=== PATIENT | female | born 1945 | race Caucasian/White ===

== ENCOUNTER 2016-12-16 09:53 | Day surgery (SDC) | payer OTHER ==
[~2016-12-16] VITALS: Ht 166.4 cm; Wt 84.4 kg
[~2016-12-16 09:53] MED LIST: ATROVENT 00.5 MG/2.5 IH; COGENTIN0.5 MG PO; COMBIVENT200 INHALA; ENALAPRIL MALEA10 MG PO; ENDOCET 5-3251 EACH PO; ESTRACE1 MG PO; FENOFIBRATE160 M1 PO; GEODON80 MG PO; GLIPIZIDE5 MG PO; GLUCOTROL10 MG PO; HYDROCODON-ACE1 EAC7 PO; JANUVIA100 MG PO; K-DUR10 MEQ PO; KLOR-CON20 MEQ PO; LASIX40 MG PO; LEVEMIR FL100 UNIT/1 SC; LEVEMIR FL100 UNITS/ SC; LEXAPRO10 MG PO; LEXAPRO20 MG PO; LOFIBRA,TRIGLI160 MG PO; METFORMIN HCL1000 MG PO; MORPHINE SULFAT15 M1 PO; NABUMETONE750 MG PO; NEURONTIN300 MG PO; PERCOCET 5/31 TABLET PO; POTASSIUM CHLO20 ME2 PO; PREDNISONE10 MG PO; PREDNISONE20 MG PO; PROBIOTIC1 EAC1 PO; RANITIDINE HCL300 M1 PO; RANITIDINE HCL300 MG PO; SEROQUEL100 MG PO; SIMVASTATIN10 MG PO; TIZANIDINE HCL4 MG PO; VASOTEC10 MG PO; ZOCOR10 MG PO
[2016-12-16 10:54] LABS: POINT-OF-CARE METER ID UU14174212
== END 2016-12-16 11:45 | disposition home or self-care (01) ==
LOC: PAIN 09:53 → SDC 10:15 → PAIN 10:15
PROVIDERS: Anesthesiology Pain Medicine
DX: M54.16 Radiculopathy, lumbar region (principal); M51.26 Other intervertebral disc displacement, lumbar region; J45.909 Unspecified asthma, uncomplicated; I10 Essential (primary) hypertension; E11.9 Type 2 diabetes mellitus without complications; M19.90 Unspecified osteoarthritis, unspecified site; Z79.51 Long term (current) use of inhaled steroids
CPT/HCPCS: 82948; J1100

== ENCOUNTER 2017-02-12 14:20 | Inpatient (IN) | payer OTHER ==
[~2017-02-12] VITALS: Ht 157.5 cm; Wt 88.3 kg
[2017-02-12 14:49] LABS: HEMATOCRIT 43.1 % (36.0-46.0); MCH 26.5 PG (29.0-34.0); MCHC 30.6 G/DL (30.0-36.0); MCV 86.4 FL (83-99); MEAN PLAT.VOLUME 10.9 uM^3 (9.5-12.4); PLATELET COUNT 250 K/uL (156-360); RBC DIS.WIDTH-CV 13.1 % (11.8-14.6); RBC DIS.WIDTH-SD 40.8 % (39-53); RED BLOOD COUNT 4.99 M/uL (3.80-5.20); WHITE BLOOD COUNT 15.5 K/uL (4.1-10.2)
[2017-02-12 15:00] LABS: CHLORIDE 99 mEq/L (99-109); SODIUM 140 mEq/L (136-147)
[2017-02-12 15:02] LABS: GLUCOSE 167 mg/dL (70-99)
[2017-02-12 15:03] LABS: ANION GAP 15 MEQ/L (2-14)
[2017-02-12 15:06] LABS: GFR ESTIMATE (CALCULATED) > 59 mL/min/
[2017-02-12 15:07] LABS: UREA NITROGEN (BUN) 29 mg/dL (9-23)
[2017-02-12 15:11] LABS: TROP-I INTERPRETATION NEGATIVE; TROPONIN-I < 0.01 ng/mL (0.0-0.30)
[2017-02-12] MEDS ORDERED: MORPHINE SULFAT30 M2 PO (16:12)
[2017-02-12] MEDS ORDERED: PREDNISONE10 MG PO (16:12)
[2017-02-12] MEDS ORDERED: K-DUR20 MEQ PO (16:12)
[2017-02-12] MEDS ORDERED: METFORMIN HCL1000 MG PO (16:13)
[2017-02-12] MEDS ORDERED: JANUVIA100 MG PO (16:13)
[2017-02-12] MEDS ORDERED: COMBIVENT RESPIM4 GM IH (16:14)
[2017-02-12] MEDS ORDERED: PRED FORTE100 DROP/5 LEFT EYE (16:14)
[2017-02-12] MEDS ORDERED: GLIPIZIDE XL10 MG PO (16:14)
[2017-02-12] MEDS ORDERED: MONTELUKAST SOD10 MG PO (16:14)
[2017-02-12] MEDS ORDERED: FLONASE16 G1 BOTH NARES (16:14)
[2017-02-12] MEDS ORDERED: FENOFIBRATE160 M1 PO (16:15)
[2017-02-12] MEDS ORDERED: VOLTAREN50 MG PO (16:15)
[2017-02-12 19:58] LABS: ADD MIUA? YES; BILIRUBIN NEGATIVE; BLOOD NEGATIVE; COLOR STRAW ((YELLOW)); GLUCOSE (STRIP) >=500; KETONES NEGATIVE; LEUKOCYTES TRACE; NITRITE NEGATIVE; PROTEIN (STRIP) NEGATIVE; SPECIFIC GRAVITY 1.007 (1.000-1.030); UROBILINOGEN 0.2 MG/DL (0.2-1.0)
[2017-02-12 20:15] LABS: BACTERIA RARE /HPF; EPITHELIAL CELLS RARE /HPF; MUCUS NONE SEEN /LPF; RED BLOOD CELLS 0-5 /HPF (0-5); UCUL ADDED? NO; WHITE BLOOD CELLS 0-5 /HPF (0-5)
[2017-02-12 20:21] VITALS: BP 145/64
[2017-02-12 21:51] LABS: Estimated Average Glucose 186 mg/dL (70-123); HEMOGLOBIN A1c (GLYCOHEMOGLOB) 8.1 % HGB (Below 5.7)
[2017-02-12 22:11] LABS: AMPHETAMINES QUANT VALUE 0 NG/ML; BARBITUATES QUANT VALUE 0 NG/ML; BENZODIAZEPINES QUANT VALUE 0 NG/ML; BENZODIAZEPINES, URINE SCREEN Negative (200 ng/mL); MARIJUANA QUANT VALUE 0 NG/ML; PHENCYCLIDINE QUANT VALUE 0 NG/ML
[2017-02-12 22:11] LABS: HDL CHOLESTEROL 53 MG/DL (Desirable>=50); LDL CHOLESTEROL 60 mg/dL (Desirable<100); NON-HDL CHOLESTEROL 101 mg/dL (Desirable<160); TOTAL CHOLESTEROL 154 mg/dL (Desirable<200); TRIGLYCERIDES 203 MG/DL (Normal: <150)
[2017-02-13 02:28] LABS: BASE EXCESS 3.1 mEq/L (-3 to +3); BICARBONATE 28.5 mEq/L (22-26); CARBOXY HGB 1.2 % (0-5); METHEMOGLOBIN 1.1 % (0-1.5); PCO2 46 mm Hg (35-45); PO2 84 mm Hg (80-100)
[2017-02-13 02:29] LABS: COMMENTS - BLOOD GASES C+A+; DEVICE NC; O2 FLOW 3 L/MIN; SITE LR; TOTAL RESP RATE 21 resp/min
[2017-02-13 02:38] VITALS: BP 144/62
[2017-02-13 05:00] VITALS: BP 134/60
[2017-02-13 05:12] LABS: HEMATOCRIT 34.9 % (36.0-46.0); MCH 26.7 PG (29.0-34.0); MCHC 31.8 G/DL (30.0-36.0); MCV 83.9 FL (83-99); MEAN PLAT.VOLUME 11.1 uM^3 (9.5-12.4); PLATELET COUNT 186 K/uL (156-360); RBC DIS.WIDTH-CV 13.1 % (11.8-14.6); RBC DIS.WIDTH-SD 40.2 % (39-53); RED BLOOD COUNT 4.16 M/uL (3.80-5.20)
[2017-02-13 05:13] LABS: WHITE BLOOD COUNT 9.1 K/uL (4.1-10.2)
[2017-02-13 07:18] VITALS: BP 155/72
[2017-02-13 07:54] LABS: POINT-OF-CARE METER ID UU13113831
[2017-02-13 08:18] LABS: POINT-OF-CARE METER ID UU13113831
[2017-02-13 11:58] VITALS: BP 164/77
[2017-02-13 15:06] VITALS: BP 142/64
[2017-02-13 20:00] VITALS: BP 144/66
[2017-02-14] VITALS: BP 132/77
[2017-02-14 04:00] VITALS: BP 158/80
[2017-02-14 12:10] LABS: POINT-OF-CARE METER ID UU14174225
[2017-02-14 16:06] VITALS: BP 147/80
[2017-02-14 16:40] LABS: POINT-OF-CARE METER ID UU14174225
[2017-02-14 20:00] VITALS: BP 164/67
[2017-02-14 23:44] VITALS: BP 158/82
[2017-02-15 04:00] VITALS: BP 140/77
[2017-02-15 07:59] VITALS: BP 140/64
[2017-02-15 08:25] LABS: POINT-OF-CARE METER ID UU14174225
[2017-02-15 12:00] VITALS: BP 132/65
[2017-02-15 12:14] LABS: POINT-OF-CARE METER ID UU14174225
[2017-02-15 15:46] VITALS: BP 131/64
[2017-02-15 16:57] LABS: POINT-OF-CARE METER ID UU14174225
[2017-02-15 19:29] VITALS: BP 137/68
[2017-02-16 00:10] VITALS: BP 135/62
[2017-02-16 04:29] VITALS: BP 128/71
[2017-02-16 08:31] VITALS: BP 121/69
[2017-02-16] MEDS ORDERED: LEVOFLOXACIN750 MG PO (11:51)
[2017-02-16] MEDS ORDERED: PREDNISONE10 MG PO (11:58)
[2017-02-16 14:49] VITALS: BP 128/70
== END 2017-02-16 14:46 | disposition home health service (06) | DRG 191 ==
LOC: EME 14:20 → EDOF 16:09 → 5WEST 20:08 → 5SOUTH 02-13 02:15 → 5WEST 02-13 02:15 → 5SOUTH 02-13 11:52
PROVIDERS: Family Medicine; Hospitalist; Nurse Practitioner Family; Physician Assistant Medical
DX: J44.1 Chronic obstructive pulmonary disease with (acute) exacerbation (principal); R65.10 Systemic inflammatory response syndrome (SIRS) of non-infectious origin without acute organ dysfunction; E11.65 Type 2 diabetes mellitus with hyperglycemia; G24.01 Drug induced subacute dyskinesia; Z99.81 Dependence on supplemental oxygen; Z79.4 Long term (current) use of insulin; Z79.84 Long term (current) use of oral hypoglycemic drugs; E66.9 Obesity, unspecified; Z68.35 Body mass index [BMI] 35.0-35.9, adult; G89.29 Other chronic pain; E78.5 Hyperlipidemia, unspecified; I10 Essential (primary) hypertension; Z87.891 Personal history of nicotine dependence; R09.02 Hypoxemia; E78.1 Pure hyperglyceridemia
CPT/HCPCS: 36600; 70450; 70551; 71020; 71250; 80048; 80061; 80306 90; 81003; 82803; 82948; 83036; 83605; 84484; 85027; 87040; 87070; 87205; 92610 GN; 93005; 93306; 93880; 94640; 94640 76; 94760; 94799; 99202; 99281; 99285; G0378; J0515; J1650; J1815; J1956; J2060; J2930; J7120

== ENCOUNTER 2017-03-12 10:25 | Day surgery (SDC) | payer OTHER ==
[~2017-03-12] VITALS: Ht 165.1 cm; Wt 85.7 kg
[~2017-03-12 10:25] MED LIST changes: +COMBIVENT RESPIM4 GM IH; +FLONASE16 G1 BOTH NARES; +GLIPIZIDE XL10 MG PO; +K-DUR20 MEQ PO; +LEVOFLOXACIN750 MG PO; +MONTELUKAST SOD10 MG PO; +MORPHINE SULFAT30 M2 PO; +MULTIVITAMIN1 EAC2 PO; +NOVOLIN,HU100 UNITS1 SC; +PRED FORTE100 DROP/5 LEFT EYE; +VOLTAREN50 MG PO
[2017-03-12 10:54] LABS: POINT-OF-CARE METER ID UU14174212
== END 2017-03-12 11:34 | disposition home or self-care (01) ==
LOC: PAIN 10:25 → SDC 11:00 → PAIN 11:00
PROVIDERS: Anesthesiology Pain Medicine
PROC: 0SJ Lower Joints, Inspection (ICD-10-PCS; principal; 2017-03-12)
DX: M54.16 Radiculopathy, lumbar region (principal); G89.29 Other chronic pain; Z53.09 Procedure and treatment not carried out because of other contraindication; J44.9 Chronic obstructive pulmonary disease, unspecified
CPT/HCPCS: 82948

== ENCOUNTER 2017-05-14 11:09 | Day surgery (SDC) | payer OTHER ==
[~2017-05-14] VITALS: Ht 165.1 cm; Wt 85.7 kg
[2017-05-14 11:45] LABS: POINT-OF-CARE METER ID UU14174212
== END 2017-05-14 12:55 | disposition home or self-care (01) ==
LOC: PAIN 11:09 → SDC 11:45 → PAIN 11:45
PROVIDERS: Anesthesiology Pain Medicine
DX: M47.26 Other spondylosis with radiculopathy, lumbar region (principal); M51.16 Intervertebral disc disorders with radiculopathy, lumbar region; G89.29 Other chronic pain; M43.16 Spondylolisthesis, lumbar region; M54.12 Radiculopathy, cervical region; M54.5 Low back pain; I10 Essential (primary) hypertension; E78.5 Hyperlipidemia, unspecified; K21.9 Gastro-esophageal reflux disease without esophagitis; J44.9 Chronic obstructive pulmonary disease, unspecified; E11.9 Type 2 diabetes mellitus without complications; F20.9 Schizophrenia, unspecified; F32.9 Major depressive disorder, single episode, unspecified; G47.33 Obstructive sleep apnea (adult) (pediatric); Z80.1 Family history of malignant neoplasm of trachea, bronchus and lung; Z79.4 Long term (current) use of insulin; Z79.84 Long term (current) use of oral hypoglycemic drugs; Z79.899 Other long term (current) drug therapy; Z87.891 Personal history of nicotine dependence; Z79.891 Long term (current) use of opiate analgesic
CPT/HCPCS: 82948; J1030; J3010; S0020

== ENCOUNTER 2017-05-21 10:54 | Day surgery (SDC) | payer OTHER ==
[~2017-05-21] VITALS: Ht 165.1 cm; Wt 85.7 kg
[2017-05-21 11:37] LABS: POINT-OF-CARE METER ID UU14174212
== END 2017-05-21 13:19 | disposition home or self-care (01) ==
LOC: PAIN 10:54 → SDC 11:45 → PAIN 13:19
PROVIDERS: Anesthesiology Pain Medicine
DX: M47.26 Other spondylosis with radiculopathy, lumbar region (principal); M51.16 Intervertebral disc disorders with radiculopathy, lumbar region; M54.5 Low back pain; M54.12 Radiculopathy, cervical region; G89.29 Other chronic pain; I10 Essential (primary) hypertension; E11.9 Type 2 diabetes mellitus without complications; E03.9 Hypothyroidism, unspecified; K21.9 Gastro-esophageal reflux disease without esophagitis; J44.9 Chronic obstructive pulmonary disease, unspecified; Z87.891 Personal history of nicotine dependence; Z85.42 Personal history of malignant neoplasm of other parts of uterus; Z79.84 Long term (current) use of oral hypoglycemic drugs; Z79.891 Long term (current) use of opiate analgesic
CPT/HCPCS: 82948; J1030; J3010; S0020

== ENCOUNTER 2017-07-12 22:49 | Emergency (ER) | payer OTHER ==
[~2017-07-12] VITALS: Ht 165.1 cm; Wt 85.9 kg
[2017-07-13 00:12] LABS: HEMATOCRIT 42.8 % (36.0-46.0); MCHC 30.8 G/DL (30.0-36.0); MCV 87.5 FL (83-99); MEAN PLAT.VOLUME 10.9 uM^3 (9.5-12.4); PLATELET COUNT 230 K/uL (156-360); RBC DIS.WIDTH-CV 13.9 % (11.8-14.6); RBC DIS.WIDTH-SD 44.5 % (39-53); RED BLOOD COUNT 4.89 M/uL (3.80-5.20); WHITE BLOOD COUNT 13.6 K/uL (4.1-10.2)
[2017-07-13 00:23] LABS: CHLORIDE 102 mEq/L (99-109); POTASSIUM 4.2 mEq/L (3.7-5.4); SODIUM 144 mEq/L (136-147)
[2017-07-13 00:25] LABS: GLUCOSE 145 mg/dL (70-99)
[2017-07-13 00:26] LABS: ANION GAP 9 MEQ/L (2-14)
[2017-07-13 00:29] LABS: GFR ESTIMATE (CALCULATED) > 59 mL/min/
[2017-07-13 00:30] LABS: UREA NITROGEN (BUN) 25 mg/dL (9-23)
[2017-07-13 00:33] LABS: TROP-I INTERPRETATION NEGATIVE; TROPONIN-I < 0.01 ng/mL (0.0-0.30)
[2017-07-13 03:32] LABS: TROP-I INTERPRETATION NEGATIVE; TROPONIN-I < 0.01 ng/mL (0.0-0.30)
[2017-07-13] MEDS ORDERED: LEVAQUIN500 MG PO (03:47)
[2017-07-13 04:24] VITALS: BP 140/58
== END 2017-07-13 04:26 | disposition home or self-care (01) ==
LOC: EME 22:49
PROVIDERS: Emergency Medicine
DX: J44.1 Chronic obstructive pulmonary disease with (acute) exacerbation (principal); K21.9 Gastro-esophageal reflux disease without esophagitis; I25.2 Old myocardial infarction; M81.0 Age-related osteoporosis without current pathological fracture; Z87.891 Personal history of nicotine dependence
CPT/HCPCS: 71020; 80048; 84484; 85027; 93005; 94640; 94799; 99281; 99284; J1100; J1200

== ENCOUNTER 2017-08-20 14:08 | Day surgery (SDC) | payer OTHER ==
[~2017-08-20 14:08] MED LIST changes: -ENALAPRIL MALEA10 MG PO; +LEVAQUIN500 MG PO; +PRED FORTE100 DROP/5 BOTH EYES; -PRED FORTE100 DROP/5 LEFT EYE
[2017-08-20] MEDS ORDERED: LEVEMIR FL100 UNIT/1 SC (22:08)
[2017-08-20] MEDS ORDERED: MUCINEX1200 MG PO (22:09)
== END 2017-08-20 15:15 | disposition other institution (70) ==
LOC: EDBD 14:08 → PAIN 14:08 → SDC 14:30 → PAIN 14:30
DX: Z53.8 Procedure and treatment not carried out for other reasons (principal)

== ENCOUNTER 2017-08-20 15:22 | Inpatient (IN) | payer OTHER ==
[~2017-08-20] VITALS: Ht 165.1 cm; Wt 86.3 kg
[2017-08-20 18:26] LABS: MCHC 31.2 G/DL (30.0-36.0); MCV 86.6 FL (83-99); MEAN PLAT.VOLUME 11.3 uM^3 (9.5-12.4); PLATELET COUNT 180 K/uL (156-360); RBC DIS.WIDTH-CV 14.1 % (11.8-14.6); RED BLOOD COUNT 3.81 M/uL (3.80-5.20); WHITE BLOOD COUNT 14.2 K/uL (4.1-10.2)
[2017-08-20 18:33] LABS: CHLORIDE 103 mEq/L (99-109); POTASSIUM 4.1 mEq/L (3.7-5.4); SODIUM 141 mEq/L (136-147)
[2017-08-20 18:34] LABS: GLUCOSE 111 mg/dL (70-99)
[2017-08-20 18:36] LABS: ANION GAP 13 MEQ/L (2-14)
[2017-08-20 18:38] LABS: GFR ESTIMATE (CALCULATED) > 59 mL/min/
[2017-08-20 18:39] LABS: UREA NITROGEN (BUN) 18 mg/dL (9-23)
[2017-08-20 18:45] LABS: TROP-I INTERPRETATION NEGATIVE; TROPONIN-I < 0.01 ng/mL (0.0-0.30)
[2017-08-20] MEDS ORDERED: LEVEMIR FL100 UNIT/1 SC (22:08)
[2017-08-20] MEDS ORDERED: MUCINEX1200 MG PO (22:09)
[2017-08-21 01:58] VITALS: BP 146/69
[2017-08-21 02:59] LABS: POINT-OF-CARE METER ID UU13113717
[2017-08-21 06:45] LABS: POINT-OF-CARE METER ID UU13113717
[2017-08-21 06:49] LABS: ALKALINE PHOSPHATASE 41 IU/L (3-129); ANION GAP 9 MEQ/L (2-14); CHLORIDE 104 MEQ/L (99-109); GFR ESTIMATE (CALCULATED) > 59 mL/min/; GLUCOSE 98 mg/dL (70-99); HEMATOCRIT 33.4 % (36.0-46.0); MCH 26.6 PG (29.0-34.0); MCHC 30.5 G/DL (30.0-36.0); MCV 87.2 FL (83-99); MEAN PLAT.VOLUME 11.1 uM^3 (9.5-12.4); PLATELET COUNT 169 K/uL (156-360); POTASSIUM 3.8 MEQ/L (3.7-5.4); RBC DIS.WIDTH-CV 13.9 % (11.8-14.6); RBC DIS.WIDTH-SD 44.2 % (39-53); RED BLOOD COUNT 3.83 M/uL (3.80-5.20); SAMPLE HEMOLYSIS CHECK 0; SAMPLE ICTERIC CHECK 0; SAMPLE LIPEMIA CHECK 0; SODIUM 143 MEQ/L (136-147); TOTAL BILIRUBIN 0.3 MG/DL (0.0-1.0); UREA NITROGEN (BUN) 14 mg/dL (9-23); WHITE BLOOD COUNT 12.6 K/uL (4.1-10.2)
[2017-08-21 07:37] LABS: POINT-OF-CARE METER ID UU14188625
[2017-08-21 07:41] VITALS: BP 181/74
[2017-08-21 09:54] LABS: POINT-OF-CARE METER ID UU13113717; POINT-OF-CARE USER ID STWAMT
[2017-08-21 11:16] VITALS: BP 138/96
[2017-08-21 16:04] VITALS: BP 134/88
[2017-08-21 17:25] LABS: POINT-OF-CARE METER ID UU13113717
[2017-08-21 19:41] VITALS: BP 160/72
[2017-08-21 21:39] LABS: POINT-OF-CARE METER ID UU14188625; POINT-OF-CARE USER ID BHSKTD
[2017-08-21 23:38] VITALS: BP 134/79
[2017-08-22 04:04] VITALS: BP 124/71
[2017-08-22 07:56] LABS: POINT-OF-CARE METER ID UU14188625
[2017-08-22 08:00] VITALS: BP 144/60
[2017-08-22 09:45] LABS: HDL CHOLESTEROL 65 MG/DL (Desirable>=50); LDL CHOLESTEROL 41 mg/dL (Desirable<100); NON-HDL CHOLESTEROL 68 mg/dL (Desirable<160); TOTAL CHOLESTEROL 133 mg/dL (Desirable<200); TRIGLYCERIDES 136 MG/DL (Normal: <150)
[2017-08-22 09:59] LABS: Estimated Average Glucose 166 mg/dL (70-123); HEMOGLOBIN A1c (GLYCOHEMOGLOB) 7.4 % HGB (Below 5.7)
[2017-08-22 12:02] VITALS: BP 147/63
[2017-08-22 15:19] VITALS: BP 149/63
[2017-08-22 18:28] VITALS: BP 150/67
[2017-08-22 21:21] LABS: POINT-OF-CARE METER ID UU14188625
[2017-08-22 23:37] VITALS: BP 140/64
[2017-08-23 03:48] VITALS: BP 133/64
[2017-08-23 06:36] LABS: POINT-OF-CARE METER ID UU13113717
[2017-08-23 08:03] VITALS: BP 160/72
[2017-08-23 08:37] LABS: POINT-OF-CARE METER ID UU14188625
[2017-08-23 11:42] VITALS: BP 122/67
[2017-08-23 12:31] LABS: POINT-OF-CARE METER ID UU14188625
[2017-08-23 16:05] VITALS: BP 125/59
[2017-08-23 20:21] VITALS: BP 134/65
[2017-08-23 23:52] VITALS: BP 148/64
[2017-08-24 03:43] LABS: POINT-OF-CARE METER ID UU14188625
[2017-08-24 07:23] VITALS: BP 137/64
[2017-08-24 11:10] VITALS: BP 141/73
[2017-08-24 15:12] VITALS: BP 119/56
[2017-08-24 16:12] LABS: POINT-OF-CARE METER ID UU13113717
[2017-08-24 19:49] VITALS: BP 122/53
[2017-08-24 23:50] VITALS: BP 153/69
[2017-08-25 03:20] LABS: POINT-OF-CARE METER ID UU14188625
[2017-08-25 03:40] VITALS: BP 142/57
[2017-08-25 07:17] VITALS: BP 135/60
[2017-08-25 07:35] LABS: POINT-OF-CARE METER ID UU14188625
[2017-08-25 08:48] LABS: HEMATOCRIT 38.1 % (36.0-46.0); MCH 27.2 PG (29.0-34.0); MCHC 30.7 G/DL (30.0-36.0); MCV 88.6 FL (83-99); MEAN PLAT.VOLUME 11.1 uM^3 (9.5-12.4); PLATELET COUNT 208 K/uL (156-360); RBC DIS.WIDTH-SD 44.6 % (39-53); WHITE BLOOD COUNT 8.1 K/uL (4.1-10.2)
[2017-08-25 09:26] LABS: ANION GAP 9 MEQ/L (2-14); CHLORIDE 101 MEQ/L (99-109); GFR ESTIMATE (CALCULATED) > 59 mL/min/; GLUCOSE 163 mg/dL (70-99); POTASSIUM 4.5 MEQ/L (3.7-5.4); SAMPLE HEMOLYSIS CHECK 0; SAMPLE ICTERIC CHECK 0; SAMPLE LIPEMIA CHECK 0; SODIUM 143 MEQ/L (136-147); UREA NITROGEN (BUN) 18 mg/dL (9-23)
[2017-08-25 11:13] VITALS: BP 124/57
[2017-08-25 11:18] LABS: POINT-OF-CARE METER ID UU14188625
== END 2017-08-25 11:48 | disposition home health service (06) | DRG 92 ==
LOC: EME 15:22 → 5SOUTH 23:45 → EDOF 23:45 → ENRESERV 23:47 → 5SOUTH 08-21 01:43
PROVIDERS: Internal Medicine; Nurse Practitioner Adult Health; Physician Assistant Medical
DX: G24.01 Drug induced subacute dyskinesia (principal); J44.9 Chronic obstructive pulmonary disease, unspecified; F20.9 Schizophrenia, unspecified; J96.10 Chronic respiratory failure, unspecified whether with hypoxia or hypercapnia; Z99.81 Dependence on supplemental oxygen; M43.16 Spondylolisthesis, lumbar region; M46.90 Unspecified inflammatory spondylopathy, site unspecified; M48.06 Spinal stenosis, lumbar region; M51.16 Intervertebral disc disorders with radiculopathy, lumbar region; I10 Essential (primary) hypertension; F32.9 Major depressive disorder, single episode, unspecified; E11.9 Type 2 diabetes mellitus without complications; E78.5 Hyperlipidemia, unspecified; E66.3 Overweight; G89.29 Other chronic pain; F41.9 Anxiety disorder, unspecified; D72.829 Elevated white blood cell count, unspecified; M12.9 Arthropathy, unspecified; M81.0 Age-related osteoporosis without current pathological fracture; K21.9 Gastro-esophageal reflux disease without esophagitis; Z79.4 Long term (current) use of insulin; Z85.828 Personal history of other malignant neoplasm of skin; Z86.19 Personal history of other infectious and parasitic diseases; Z86.73 Personal history of transient ischemic attack (TIA), and cerebral infarction without residual deficits; Z98.42 Cataract extraction status, left eye; Z98.41 Cataract extraction status, right eye; Z87.891 Personal history of nicotine dependence; Z68.31 Body mass index [BMI] 31.0-31.9, adult; I25.2 Old myocardial infarction; Z80.0 Family history of malignant neoplasm of digestive organs; Z80.8 Family history of malignant neoplasm of other organs or systems; Z83.3 Family history of diabetes mellitus
CPT/HCPCS: 70450; 70486; 71010; 72131; 72148; 73502; 80048; 80053; 80061; 82948; 83036; 84484; 85027; 90686; 92610 GN; 93005; 93880; 94640; 94640 76; 94760; 94799; 97530 GP; 99281; 99285; J1644; J1815; J7030; S0028

== ENCOUNTER 2017-08-27 13:56 | Day surgery (SDC) | payer OTHER ==
[~2017-08-27] VITALS: Ht 165.1 cm; Wt 86.3 kg
[~2017-08-27 13:56] MED LIST changes: +MUCINEX1200 MG PO
[2017-08-27 14:45] LABS: POINT-OF-CARE METER ID UU14174212
== END 2017-08-27 15:48 | disposition home or self-care (01) ==
LOC: PAIN 13:56 → EDBD 14:30 → SDC 14:30 → PAIN 15:48
PROVIDERS: Anesthesiology Pain Medicine
DX: M47.26 Other spondylosis with radiculopathy, lumbar region (principal); M51.16 Intervertebral disc disorders with radiculopathy, lumbar region; M43.16 Spondylolisthesis, lumbar region; I10 Essential (primary) hypertension; E11.9 Type 2 diabetes mellitus without complications; E03.9 Hypothyroidism, unspecified; J44.9 Chronic obstructive pulmonary disease, unspecified; I25.2 Old myocardial infarction; K21.9 Gastro-esophageal reflux disease without esophagitis; E78.5 Hyperlipidemia, unspecified; G47.30 Sleep apnea, unspecified; Z87.891 Personal history of nicotine dependence; Z79.891 Long term (current) use of opiate analgesic
CPT/HCPCS: 82948; J1030; J1885; J2250; S0020

== ENCOUNTER 2017-09-29 12:01 | Day surgery (SDC) | payer OTHER ==
[~2017-09-29] VITALS: Ht 165.1 cm; Wt 86.3 kg
[~2017-09-29 12:01] MED LIST changes: +LISINOPRIL5 MG PO
[2017-09-29 12:55] LABS: POINT-OF-CARE METER ID UU14174212
== END 2017-09-29 14:17 | disposition home or self-care (01) ==
LOC: PAIN 12:01 → SDC 12:30 → PAIN 12:30
PROVIDERS: Anesthesiology Pain Medicine
DX: M12.88 Other specific arthropathies, not elsewhere classified, other specified site (principal); M43.16 Spondylolisthesis, lumbar region; M51.16 Intervertebral disc disorders with radiculopathy, lumbar region; M81.0 Age-related osteoporosis without current pathological fracture; I10 Essential (primary) hypertension; E78.5 Hyperlipidemia, unspecified; E11.9 Type 2 diabetes mellitus without complications; I69.354 Hemiplegia and hemiparesis following cerebral infarction affecting left non-dominant side; J44.9 Chronic obstructive pulmonary disease, unspecified; G47.30 Sleep apnea, unspecified; F32.9 Major depressive disorder, single episode, unspecified; G89.29 Other chronic pain; Z85.42 Personal history of malignant neoplasm of other parts of uterus; Z87.891 Personal history of nicotine dependence; Z79.84 Long term (current) use of oral hypoglycemic drugs; Z79.52 Long term (current) use of systemic steroids
CPT/HCPCS: 82948; J1030; J2250; J3010; S0020

== ENCOUNTER 2017-12-27 08:43 | Emergency (ER) | payer OTHER ==
[~2017-12-27] VITALS: Ht 165.1 cm; Wt 83.6 kg
[2017-12-27 09:10] LABS: BASE EXCESS 1.5 mEq/L (-3 to +3); BICARBONATE 30.7 mEq/L (22-26); CARBOXY HGB 1.1 % (0-5); DEVICE 840; FI02 80 %; METHEMOGLOBIN 0.8 % (0-1.5); MODE N/V SPONT; PCO2 70 mm Hg (35-45); PEEP 5 CM/H20; PO2 101 mm Hg (80-100); PRES. SUPPORT 12 CM/H2O; SITE RR; TOTAL RESP RATE 25 resp/min; pH 7.25 (7.35-7.45)
[2017-12-27 09:11] LABS: COMMENTS - BLOOD GASES A+C+
[2017-12-27 09:27] LABS: BASOPHIL (%) 0.3 % (0-1); EOSINOPHIL (%) 0.7 % (0-5); EOSINOPHIL COUNT 0.1 K/uL (0-0.3); HEMOGLOBIN 13.5 G/DL (11.9-15.5); IMMATURE GRANULOCYTE (%) 0.3 % (0.0-0.7); LYMPHOCYTE (%) 9.8 % (15-42); LYMPHOCYTE COUNT 1.1 K/uL (1.0-2.8); MCH 27.1 PG (29.0-34.0); MCHC 30.7 G/DL (30.0-36.0); MCV 88.4 FL (83-99); MONOCYTE (%) 4.9 % (3-12); MONOCYTE COUNT 0.6 K/uL (0-0.8); NEUTROPHIL COUNT 9.7 K/uL (1.8-6.4); PLATELET COUNT 276 K/uL (156-360); RBC DIS.WIDTH-CV 13.2 % (11.8-14.6); RBC DIS.WIDTH-SD 43.1 % (39-53); RED BLOOD COUNT 4.98 M/uL (3.80-5.20); WHITE BLOOD COUNT 11.6 K/uL (4.1-10.2)
[2017-12-27 09:36] LABS: CHLORIDE 103 mEq/L (99-109); POTASSIUM 3.3 mEq/L (3.7-5.4); SODIUM 142 mEq/L (136-147)
[2017-12-27 09:37] LABS: PTT 23.7 SEC (25-37)
[2017-12-27 09:38] LABS: GLUCOSE 179 mg/dL (70-99)
[2017-12-27 09:41] LABS: CREATININE 1.1 mg/dL (0.6-1.3); GFR ESTIMATE (CALCULATED) 52 mL/min/
[2017-12-27 09:42] LABS: UREA NITROGEN (BUN) 25 mg/dL (9-23)
[2017-12-27 09:48] LABS: TROP-I INTERPRETATION NEGATIVE; TROPONIN-I 0.21 ng/mL (0.0-0.30)
[2017-12-27 10:13] LABS: BASE EXCESS 1.1 mEq/L (-3 to +3); BICARBONATE 29.6 mEq/L (22-26); CARBOXY HGB 0.6 % (0-5); COMMENTS - BLOOD GASES A+C+; DEVICE 840; FI02 80 %; MODE N/V SPONT; PCO2 66 mm Hg (35-45); PEEP 5 CM/H20; PO2 155 mm Hg (80-100); PRES. SUPPORT 12 CM/H2O; SITE LR; TOTAL RESP RATE 17 resp/min; pH 7.26 (7.35-7.45)
[2017-12-27 11:20] LABS: BASE EXCESS -1.1 mEq/L (-3 to +3); BICARBONATE 28.1 mEq/L (22-26); CARBOXY HGB 0.7 % (0-5); METHEMOGLOBIN 0.8 % (0-1.5); PCO2 72 mm Hg (35-45); PO2 153 mm Hg (80-100)
[2017-12-27 11:21] LABS: COMMENTS - BLOOD GASES A+C+; DEVICE 840; FI02 80 %; MODE N/V SPONT; PEEP 5 CM/H20; PRES. SUPPORT 15 CM/H2O; SITE RR; TOTAL RESP RATE 18 resp/min
[2017-12-27] MEDS ORDERED: RELAFEN750 MG PO (11:59)
[2017-12-27] MEDS ORDERED: TRAZODONE HCL50 MG PO (12:00)
[2017-12-27] MEDS ORDERED: ZIPRASIDONE HCL80 MG PO (12:05)
[2017-12-27 13:57] LABS: BASE EXCESS 0 mEq/L (-3 to +3); BICARBONATE 29.3 mEq/L (22-26); CARBOXY HGB 2.5 % (0-5); COMMENTS - BLOOD GASES A+C+; DEVICE 840; FI02 80 %; METHEMOGLOBIN 0.6 % (0-1.5); MODE N/V SPONT; PCO2 75 mm Hg (35-45); PO2 180 mm Hg (80-100); SITE RR; TOTAL RESP RATE 17 resp/min
[2017-12-27 13:58] LABS: PEEP 5 CM/H20; PRES. SUPPORT 15 CM/H2O
[2017-12-27 14:47] LABS: BASE EXCESS -1.9 mEq/L (-3 to +3); BICARBONATE 26.8 mEq/L (22-26); CARBOXY HGB 0.9 % (0-5); METHEMOGLOBIN 0.9 % (0-1.5)
[2017-12-27 14:48] LABS: COMMENTS - BLOOD GASES A+C+; DEVICE 840; FI02 70 %; MECHANICAL RATE 20 resp/min; MODE AC; PCO2 64 mm Hg (35-45); PO2 117 mm Hg (80-100); SITE LR; TIDAL VOLUME 400 ML; TOTAL RESP RATE 20 resp/min; pH 7.23 (7.35-7.45)
[2017-12-27 14:49] LABS: PEEP 5 CM/H20
[2017-12-27 17:51] VITALS: BP 113/56
== END 2017-12-27 18:40 | disposition short-term general hospital (02) ==
LOC: EME 08:43
PROVIDERS: Emergency Medicine
DX: J44.0 Chronic obstructive pulmonary disease with (acute) lower respiratory infection (principal); J18.9 Pneumonia, unspecified organism; J96.90 Respiratory failure, unspecified, unspecified whether with hypoxia or hypercapnia; E11.9 Type 2 diabetes mellitus without complications; I25.2 Old myocardial infarction; M81.0 Age-related osteoporosis without current pathological fracture; Z79.4 Long term (current) use of insulin; Z86.73 Personal history of transient ischemic attack (TIA), and cerebral infarction without residual deficits; Z87.891 Personal history of nicotine dependence; Z79.891 Long term (current) use of opiate analgesic; Z88.8 Allergy status to other drugs, medicaments and biological substances
CPT/HCPCS: 36600; 71045; 80048; 82803; 83605; 83880; 84484; 85025; 85610; 85730; 87040; 87070; 87205; 93005; 94002; 94640; 99281; 99285; J1100; J2543; J2704; J2930; J3370

== ENCOUNTER 2018-02-08 13:38 | Day surgery (SDC) | payer OTHER ==
[~2018-02-08] VITALS: Ht 165.1 cm; Wt 84.4 kg
[~2018-02-08 13:38] MED LIST changes: +FLEXERIL5 MG PO; +RELAFEN750 MG PO; +TRAZODONE HCL50 MG PO; +ZIPRASIDONE HCL80 MG PO
== END 2018-02-08 15:30 | disposition home or self-care (01) ==
LOC: PAIN 13:38 → SDC 14:00 → PAIN 15:30
PROVIDERS: Anesthesiology Pain Medicine
PROC: 3E0S33Z Introduction of Anti-inflammatory into Epidural Space, Percutaneous Approach (ICD-10-PCS; principal; 2018-02-08)
PROC: B01B1ZZ Fluoroscopy of Spinal Cord using Low Osmolar Contrast (ICD-10-PCS; 2018-02-08)
DX: M54.16 Radiculopathy, lumbar region (principal); G89.29 Other chronic pain; Z87.891 Personal history of nicotine dependence; M47.816 Spondylosis without myelopathy or radiculopathy, lumbar region; M51.26 Other intervertebral disc displacement, lumbar region; M43.16 Spondylolisthesis, lumbar region; M51.36 Other intervertebral disc degeneration, lumbar region; I69.354 Hemiplegia and hemiparesis following cerebral infarction affecting left non-dominant side; I10 Essential (primary) hypertension; J44.9 Chronic obstructive pulmonary disease, unspecified; Z99.81 Dependence on supplemental oxygen; F32.9 Major depressive disorder, single episode, unspecified; E78.5 Hyperlipidemia, unspecified; K21.9 Gastro-esophageal reflux disease without esophagitis; Z85.42 Personal history of malignant neoplasm of other parts of uterus; Z79.84 Long term (current) use of oral hypoglycemic drugs
CPT/HCPCS: 82948; J1100; J2250; J3010

== ENCOUNTER 2018-03-22 16:05 | Emergency (ER) | payer OTHER ==
[~2018-03-22] VITALS: Ht 299.7 cm; Wt 81.3 kg
[2018-03-22 17:03] LABS: HEMATOCRIT 37.4 % (36.0-46.0); HEMOGLOBIN 11.9 G/DL (11.9-15.5); MCH 28.1 PG (29.0-34.0); MCHC 31.8 G/DL (30.0-36.0); MCV 88.4 FL (83-99); PLATELET COUNT 188 K/uL (156-360); RBC DIS.WIDTH-CV 13.6 % (11.8-14.6); RBC DIS.WIDTH-SD 44.2 % (39-53); RED BLOOD COUNT 4.23 M/uL (3.80-5.20); WHITE BLOOD COUNT 11.5 K/uL (4.1-10.2)
[2018-03-22 17:12] LABS: CHLORIDE 96 mEq/L (99-109); POTASSIUM 4.2 mEq/L (3.7-5.4); SODIUM 143 mEq/L (136-147)
[2018-03-22] MEDS ORDERED: LEVAQUIN750 MG PO (17:13)
[2018-03-22 17:14] LABS: GLUCOSE 167 mg/dL (70-99)
[2018-03-22 17:17] LABS: CREATININE 0.8 mg/dL (0.6-1.3); GFR ESTIMATE (CALCULATED) > 59 mL/min/
[2018-03-22 17:18] LABS: UREA NITROGEN (BUN) 31 mg/dL (9-23)
[2018-03-22 17:50] LABS: APPEARANCE CLEAR ((CLEAR)); BILIRUBIN NEGATIVE; BLOOD NEGATIVE; COLOR YELLOW ((YELLOW)); GLUCOSE (STRIP) NEGATIVE; KETONES NEGATIVE; LEUKOCYTES SMALL; NITRITE NEGATIVE; PROTEIN (STRIP) NEGATIVE; SPECIFIC GRAVITY 1.014 (1.000-1.030); UROBILINOGEN 0.2 MG/DL (0.2-1.0)
[2018-03-22 18:05] LABS: BACTERIA RARE /HPF; EPITHELIAL CELLS RARE /HPF; MUCUS NONE SEEN /LPF; RED BLOOD CELLS 0-5 /HPF (0-5); UCUL ADDED? YES
[2018-03-22] MEDS ORDERED: ALBUTEROL0.63 MG/3 IH (18:47)
[2018-03-22] MEDS ORDERED: ALBUTEROL2.5 MG/3 M IH (18:59)
[2018-03-22 19:21] VITALS: BP 139/54
[2018-03-26] MEDS ORDERED: MS CONTIN,ORAMO30 MG PO (09:10)
[2018-03-26] MEDS ORDERED: LORTAB 7.5-3251 EACH PO (09:11)
[2018-03-26] MEDS ORDERED: PROVENTIL,2.5 MG/3 M IH (09:12)
== END 2018-03-22 19:29 | disposition home or self-care (01) ==
LOC: EME 16:05
DX: N39.0 Urinary tract infection, site not specified (principal); R41.82 Altered mental status, unspecified; J44.1 Chronic obstructive pulmonary disease with (acute) exacerbation; E86.0 Dehydration; E11.9 Type 2 diabetes mellitus without complications; M81.0 Age-related osteoporosis without current pathological fracture; I25.2 Old myocardial infarction; Z87.891 Personal history of nicotine dependence; Z79.891 Long term (current) use of opiate analgesic; Z79.4 Long term (current) use of insulin; Z79.52 Long term (current) use of systemic steroids; Z99.81 Dependence on supplemental oxygen; Z86.73 Personal history of transient ischemic attack (TIA), and cerebral infarction without residual deficits; Z85.9 Personal history of malignant neoplasm, unspecified; Z88.8 Allergy status to other drugs, medicaments and biological substances
CPT/HCPCS: 71046; 80048; 81003; 83605; 85027; 87040; 87086; 93005; 94640; 99281; 99284

== ENCOUNTER 2018-05-10 13:58 | Day surgery (SDC) | payer OTHER ==
[~2018-05-10] VITALS: Ht 165.1 cm; Wt 81.2 kg
[~2018-05-10 13:58] MED LIST changes: +ALBUTEROL0.63 MG/3 IH; +ALBUTEROL2.5 MG/3 M IH; +LEVAQUIN750 MG PO; +LORTAB 7.5-3251 EACH PO; +MS CONTIN,ORAMO30 MG PO; +PROVENTIL,2.5 MG/3 M IH
== END 2018-05-10 15:15 | disposition home or self-care (01) ==
LOC: PAIN 13:58 → SDC 15:00 → PAIN 15:15
PROVIDERS: Anesthesiology Pain Medicine
PROC: 3E0S33Z Introduction of Anti-inflammatory into Epidural Space, Percutaneous Approach (ICD-10-PCS; principal; 2018-05-10)
PROC: B01B0ZZ Fluoroscopy of Spinal Cord using High Osmolar Contrast (ICD-10-PCS; principal; 2018-05-10)
DX: M54.16 Radiculopathy, lumbar region (principal); G89.29 Other chronic pain; M47.816 Spondylosis without myelopathy or radiculopathy, lumbar region; M51.26 Other intervertebral disc displacement, lumbar region; I69.354 Hemiplegia and hemiparesis following cerebral infarction affecting left non-dominant side; I10 Essential (primary) hypertension; E11.9 Type 2 diabetes mellitus without complications; M81.0 Age-related osteoporosis without current pathological fracture; J44.9 Chronic obstructive pulmonary disease, unspecified; Z99.81 Dependence on supplemental oxygen; K21.9 Gastro-esophageal reflux disease without esophagitis; E78.5 Hyperlipidemia, unspecified; Z87.891 Personal history of nicotine dependence; Z79.84 Long term (current) use of oral hypoglycemic drugs; Z79.52 Long term (current) use of systemic steroids; Z88.8 Allergy status to other drugs, medicaments and biological substances
CPT/HCPCS: 82948; J1100